=== PATIENT | female | born 1980 | race Caucasian/White ===

== ENCOUNTER 2024-05-02 22:01 | Emergency (ER) | payer MEDICAID ==
[~2024-05-02] VITALS: Ht 172.7 cm; Wt 86.2 kg
[2024-05-03] MEDS ORDERED: IBUP-1957 PO (00:08)
[2024-05-03] MEDS ORDERED: AMOX-430 PO (00:08)
[2024-05-03] MEDS ORDERED: AMOX/CLAVULANATE 875 MG TABLET ONE (00:10)
[2024-05-03] MEDS: AMOX/CLAVULANATE 875 MG TABLET PO ONE (00:11)
[2024-05-03 00:23] VITALS: BP 147/76; TEMP 99.2; O2SAT 98
== END 2024-05-03 00:23 | disposition home or self-care (01) ==
LOC: ER 22:03
DX: J02.0 Streptococcal pharyngitis (principal); F41.9 Anxiety disorder, unspecified; F32.A Depression, unspecified; Z79.1 Long term (current) use of non-steroidal anti-inflammatories (NSAID); Z88.5 Allergy status to narcotic agent; Z60.2 Problems related to living alone

== ENCOUNTER 2024-09-06 03:51 | Emergency (ER) | payer MEDICAID, OTHER ==
[~2024-09-06] VITALS: Ht 172.7 cm; Wt 115.2 kg
[~2024-09-06 03:51] MED LIST: AMOX-430 PO; IBUP-1957 PO
[2024-09-06] MEDS ORDERED: IOHEXOL-350 100 ML VIAL IV ONE (04:11)
[2024-09-06] MEDS ORDERED: IV NS 0.9% 250 ML IV ONE (04:11)
[2024-09-06 04:47] LABS: CALCIUM, SERUM 8.8 mg/dL (8.5-10.1); CARBON DIOXIDE 28 mmol/L (21-32); CHLORIDE 97 mmol/L (98-107); CREATININE 0.7 mg/dL (0.6-1.3); GLUCOSE 135 mg/dL (74-106); POTASSIUM 3.8 mmol/L (3.5-5.1); SODIUM SERUM 130 mmol/L (136-145); UREA NITROGEN, BLOOD 8 mg/dL (7-18)
[2024-09-06 04:50] LABS: BASOPHILS % (AUTO) 0.2 % (0.0-2.0); EOSINOPHILS # (AUTO) 0.1 K/uL (0.0-0.7); EOSINOPHILS % (AUTO) 0.6 % (0.0-6.0); HEMATOCRIT 32 % (33-45); HEMOGLOBIN 10.6 g/dL (11.5-14.8); LYMPHOCYTES % (AUTO) 16.4 % (20.0-44.0); MEAN CORPUSCULAR HEMOGLOBIN 28 PG (26.0-33.0); MEAN CORPUSCULAR HGB CONC 34 g/dl (31.0-36.0); MEAN CORPUSCULAR VOLUME 83 fL (82-100); MONOCYTES # (AUTO) 0.6 K/uL (0.1-1.30); MONOCYTES % (AUTO) 5.2 % (2.0-12.0); NEUTROPHILS # (AUTO) 9.4 K/uL (1.8-8.9); NEUTROPHILS % (AUTO) 77.6 % (43.0-81.0); PLATELET COUNT (AUTO) 331 K/uL (150-450); RED BLOOD CELL COUNT(AUTO) 3.78 MIL/uL (4.0-5.2); RED CELL DISTRIBUTION WIDTH 13.7 % (11.5-15.0); WHITE BLOOD COUNT (AUTO) 12.1 K/uL (4.3-11.0)
[2024-09-06 04:56] LABS: INR 1.02 (0.91-1.10); PARTIAL THROMBOPLASTIN TIME 29.5 SEC (24.3-34.3); PROTHROMBIN TIME 10.8 SECS (9.2-11.1)
[2024-09-06 05:00] LABS: ALANINE AMINOTRANSFERASE 14 U/L (12-78); ALBUMIN 3.3 g/dL (3.4-5.0); ALKALINE PHOSPHATASE 71 U/L (46-116); ASPARTATE AMINOTRANSFERASE 13 U/L (15-37); BILIRUBIN,DIRECT 0.1 mg/dL (0.0-0.2); BILIRUBIN,TOTAL 0.5 mg/dL (0.2-1.0); NT-PRO BNP 26 pg/mL (0-125); TOTAL PROTEIN, SERUM 7.3 g/dL (6.4-8.2)
[2024-09-06 07:49] VITALS: BP 127/64; TEMP 98.9; O2SAT 90
== END 2024-09-06 07:49 | disposition home or self-care (01) ==
LOC: ER 04:00
DX: R06.02 Shortness of breath (principal); Z79.1 Long term (current) use of non-steroidal anti-inflammatories (NSAID); Z88.5 Allergy status to narcotic agent; Z60.2 Problems related to living alone
CPT/HCPCS: 99285; 71275; 71045; 93005; 85025; 80048; 80076; 36415; 84484; 85730; 86850; 83880; 84702; J7050; Q9967

== ENCOUNTER 2024-09-08 14:38 | Emergency (ER) | payer OTHER ==
[~2024-09-08] VITALS: Ht 172.7 cm; Wt 115.2 kg
[2024-09-08 14:50] VITALS: TEMP 98.4
[2024-09-08] MEDS ORDERED: HYDROCODONE/APAP 10/325MG TABLET ONE (15:56)
[2024-09-08] MEDS: HYDROCODONE/APAP 10/325MG TABLET PO ONE (16:00)
[2024-09-08] MEDS ORDERED: HYDR-3980 PO ×2 (16:18→16:20)
[2024-09-08 17:08] VITALS: BP 125/75; O2SAT 99
== END 2024-09-08 16:53 | disposition home or self-care (01) ==
LOC: ER 14:39
DX: G89.18 Other acute postprocedural pain (principal); R11.2 Nausea with vomiting, unspecified; R68.83 Chills (without fever); F41.9 Anxiety disorder, unspecified; F32.A Depression, unspecified; Z79.1 Long term (current) use of non-steroidal anti-inflammatories (NSAID); Z88.5 Allergy status to narcotic agent; Z60.2 Problems related to living alone
CPT/HCPCS: 99283; A6253 ×2

== ENCOUNTER 2024-09-20 01:24 | Emergency (ER) | payer OTHER ==
[~2024-09-20] VITALS: Ht 172.7 cm; Wt 90.7 kg
[~2024-09-20 01:24] MED LIST changes: +HYDR-3980 PO
[2024-09-20 02:09] VITALS: TEMP 98.8
[2024-09-20 02:32] LABS: BASOPHILS # (AUTO) 0.1 K/uL (0.0-0.2); BASOPHILS % (AUTO) 0.9 % (0.0-2.0); EOSINOPHILS # (AUTO) 0.2 K/uL (0.0-0.7); EOSINOPHILS % (AUTO) 2.3 % (0.0-6.0); HEMATOCRIT 31 % (33-45); HEMOGLOBIN 10.8 g/dL (11.5-14.8); LYMPHOCYTES # (AUTO) 2.5 K/uL (0.8-4.8); LYMPHOCYTES % (AUTO) 29.3 % (20.0-44.0); MEAN CORPUSCULAR HEMOGLOBIN 28 PG (26.0-33.0); MEAN CORPUSCULAR HGB CONC 35 g/dl (31.0-36.0); MEAN CORPUSCULAR VOLUME 81 fL (82-100); MONOCYTES # (AUTO) 0.4 K/uL (0.1-1.30); MONOCYTES % (AUTO) 4.6 % (2.0-12.0); NEUTROPHILS # (AUTO) 5.3 K/uL (1.8-8.9); NEUTROPHILS % (AUTO) 62.9 % (43.0-81.0); PLATELET COUNT (AUTO) 487 K/uL (150-450); RED BLOOD CELL COUNT(AUTO) 3.81 MIL/uL (4.0-5.2); RED CELL DISTRIBUTION WIDTH 14.2 % (11.5-15.0); WHITE BLOOD COUNT (AUTO) 8.4 K/uL (4.3-11.0)
[2024-09-20 03:00] LABS: ALANINE AMINOTRANSFERASE 10 U/L (12-78); ALBUMIN 3.3 g/dL (3.4-5.0); ALKALINE PHOSPHATASE 71 U/L (46-116); ASPARTATE AMINOTRANSFERASE 13 U/L (15-37); BILIRUBIN,TOTAL 0.2 mg/dL (0.2-1.0); CALCIUM, SERUM 9.5 mg/dL (8.5-10.1); CARBON DIOXIDE 23 mmol/L (21-32); CHLORIDE 101 mmol/L (98-107); CREATININE 0.7 mg/dL (0.6-1.3); GLUCOSE 105 mg/dL (74-106); NT-PRO BNP 23 pg/mL (0-125); SODIUM SERUM 137 mmol/L (136-145); TOTAL PROTEIN, SERUM 8.4 g/dL (6.4-8.2); UREA NITROGEN, BLOOD 18 mg/dL (7-18)
[2024-09-20 05:09] VITALS: BP 127/84; O2SAT 98
== END 2024-09-20 05:10 | disposition home or self-care (01) ==
LOC: ER 01:29
DX: R07.9 Chest pain, unspecified (principal); Z60.2 Problems related to living alone; Z79.899 Other long term (current) drug therapy
CPT/HCPCS: 36415; 71045-TC; 80048-TC; 80076-TC; 83880; 84484-TC; 84702-TC; 85025-TC

== ENCOUNTER 2024-09-25 17:18 | Emergency (ER) | payer OTHER ==
[~2024-09-25] VITALS: Ht 172.7 cm; Wt 90.7 kg
[2024-09-25 18:08] VITALS: BP 154/80; TEMP 98.3; O2SAT 99
[2024-09-25] MEDS ORDERED: SULF1TAB48 PO (18:40)
== END 2024-09-25 19:56 | disposition home or self-care (01) ==
LOC: ER 17:20
DX: Z48.89 Encounter for other specified surgical aftercare (principal); Z79.1 Long term (current) use of non-steroidal anti-inflammatories (NSAID); Z88.5 Allergy status to narcotic agent; Z60.2 Problems related to living alone